=== PATIENT | male | born 1960 | race Caucasian/White ===

== ENCOUNTER → 2024-03-19 10:27 | Outpatient (BNVA) | payer OTHER, SELFPAY | PROVIDERS: Visit Provider Internal Medicine | DX: E11.9 Type 2 diabetes mellitus without complications (principal); E78.2 Mixed hyperlipidemia | CPT/HCPCS: 36415; 80053; 80061; 82044; 82607; 83036; 83721; 85025 ==

== ENCOUNTER → 2024-06-12 09:22 | Outpatient (BNVA) | payer MEDICARE, OTHER, SELFPAY | PROVIDERS: PCP Nurse Practitioner Family; Visit Provider Internal Medicine | DX: Z12.5 Encounter for screening for malignant neoplasm of prostate (principal); E11.9 Type 2 diabetes mellitus without complications; E78.2 Mixed hyperlipidemia | CPT/HCPCS: 80053; 80061; 82043; 83036; 83721; G0103 ==

== ENCOUNTER → 2024-06-19 07:58 | Outpatient (BNVA) | payer MEDICARE, OTHER, SELFPAY | PROVIDERS: PCP Nurse Practitioner Family; Visit Provider Internal Medicine | DX: G62.9 Polyneuropathy, unspecified (principal); Z82.49 Family history of ischemic heart disease and other diseases of the circulatory system; E78.5 Hyperlipidemia, unspecified | CPT/HCPCS: 99214 ==

== ENCOUNTER → 2024-08-01 09:30 | Outpatient (BNVA) | payer MEDICARE, OTHER, SELFPAY | PROVIDERS: PCP Nurse Practitioner Family; Visit Provider Internal Medicine | DX: E78.5 Hyperlipidemia, unspecified (principal) | CPT/HCPCS: 36415; 80061 ==

== ENCOUNTER → 2024-09-09 12:26 | Outpatient (BNVA) | payer MEDICARE, OTHER, SELFPAY | PROVIDERS: PCP Nurse Practitioner Family; Visit Provider Internal Medicine | DX: R07.9 Chest pain, unspecified (principal); R06.09 Other forms of dyspnea; I49.3 Ventricular premature depolarization; E78.5 Hyperlipidemia, unspecified; Z82.49 Family history of ischemic heart disease and other diseases of the circulatory system | CPT/HCPCS: 93005; 99204 ==

== ENCOUNTER → 2024-09-10 12:47 | Outpatient (BNVA) | payer MEDICARE, OTHER, SELFPAY | PROVIDERS: PCP Nurse Practitioner Family; Visit Provider Nurse Practitioner Family | DX: L57.8 Other skin changes due to chronic exposure to nonionizing radiation (principal); D22.5 Melanocytic nevi of trunk; L81.4 Other melanin hyperpigmentation; L21.8 Other seborrheic dermatitis; D48.5 Neoplasm of uncertain behavior of skin; R20.8 Other disturbances of skin sensation; L29.89 Other pruritus; R23.8 Other skin changes; L57.0 Actinic keratosis | CPT/HCPCS: 11102; 17000; 99204 ==

== ENCOUNTER 2024-10-02 06:47 | Outpatient (CLI) | payer MEDICARE, OTHER, SELFPAY ==
--- NOTE | 2024-10-02 | ECG_ITS ---
[facility] Test Date: 2024-10-02 Pat Name: Gilberto Harper Department: Room: Gender: Male Sternman: : 1960 Requested By: Filippo Dhaliwal Order Number: [id number] Lakhwinder MD: Filippo Dhaliwal M.D. Interpretive Statements EXERCISE MIBI : EXERCISE DATA: The patient was exercised by Nadir protocol. Baseline heart rate was 63 beats per minute. Baseline blood pressure was 132/88 millimeters of mercury. Maximal predicted heart rate was 155 beats per minute. Maximum heart rate achieved was 146 which was 94% of the maximum predicted heart rate. Maximum blood pressure was 188/85 millimeters of mercury. Total exercise time was 5 minutes and 30 seconds. Maximum METs achieved was 7.0. The reason for ending the test was maximal effort achieved. The patient complained of shortness of breath during the stress test, which then resolved at the end of the test. ELECTROCARDIOGRAM: BASELINE: Showed sinus rhythm, normal axis, no significant ST-T changes at the baseline noted. Frequent PVCs seen[] EXERCISE: At the peak exercise level, [] No significant ST-T changes suggestive of ischemia noted. [] RECOVERY: During the recovery period, heart rate dropped appropriately. No significant ST-T changes in the recovery suggestive of ischemia noted. Frequent PVCs [] CONCLUSION: 1. Exercise capacity is fair. 2. Heart rate response was appropriate 3. Blood pressure response was appropriate 4. Symptoms not suggestive of ischemia. 5. Electrocardiogram portion of the stress test was not suggestive of ischemia. 6. Nuclear scan will be documented separately. Electronically Signed On 10-06-2024 23:13:28 CDT by Filippo Dhaliwal M.D. [email or web address]
--- NOTE | 2024-10-02 06:15 | USCV_ITS ---
Gilberto Harper Age: 64 Gender: M : 1960 Exam Date: 10/02/2024 07:06 Ordering Phys: Filippo Dhaliwal M.D ([email or web address]) Technologist: Exam Location: [facility] – [place] Indication: cp sob BP: 1120 / 70 HR: 53 Rhythm: Sinus Technical Quality: Adequate MEASUREMENTS (Male / Female) Normal Values 2D ECHO LV Diastolic Diameter PLAX 4.2 cm 4.2 - 5.9 / 3.9 - 5.3 cm IVS Diastolic Thickness 1.5 cm 0.6 - 1.0 / 0.6 - 0.9 cm IVS Systolic Thickness 2.4 cm LVPW Diastolic Thickness 1.5 cm 0.6 - 1.0 / 0.6 - 0.9 cm LVPW Systolic Thickness 2.2 cm LVOT Diameter 2.5 cm LV Ejection Fraction 2D Teich 61.2 % LV Ejection Fraction MOD 4C 54.8 % LV Ejection Fraction MOD 2C 58.4 % LV Ejection Fraction 2C AL 62.6 % LA Diameter 4.2 cm RA Systolic Volume 4C AL 40.3 ml RA Systolic Volume 4C MOD 37.2 ml Aorta at Sinotubular Diameter 3.5 cm M-MODE LA Ao Ratio MM 1.2 AV Cusp Separation MM 2.2 cm DOPPLER AV Peak Velocity 120.0 cm/s LVOT Peak Velocity 80.0 cm/s AV Area Cont Eq vti 3.7 cm squared AV Area Cont Eq pk 3.3 cm squared MV Peak Velocity 70.0 cm/s MV Area PHT 3.7 cm squared Mitral E to A Ratio 1.0 TV Peak Velocity 242.5 cm/s TR Peak Velocity 252.0 cm/s TR Peak Gradient 25.4 mmHg TV Peak E Velocity 86.0 cm/s PV Peak Velocity 88.0 cm/s FINDINGS Left Ventricle Normal left ventricular size, systolic function and wall thickness, with no regional wall motion abnormalities. Normal left ventricular size and systolic function, EF 55-60% Right Ventricle Normal right ventricular size and systolic function. Right Atrium Normal right atrial size. Left Atrium Normal left atrial size. Mitral Valve Structurally normal mitral valve. Mild mitral valve regurgitation Aortic Valve Thickened aortic valve. No aortic valve stenosis. Tricuspid Valve Insufficient TR jet to calculate RVSP Pulmonic Valve Trace pulmonary valve regurgitation. Pericardium Normal Aorta Grossly normal size IVC Not well visualized CONCLUSIONS LV systolic function is normal with EF of 55-60% Mild mitral regurgitation Trace pulmonary valve regurgitation. Filippo Dhaliwal MD (Electronically Signed) Final Date: 05 October 2024 09:17 S
--- NOTE | 2024-10-02 07:23 | NMCV_ITS ---
NM abbie perf SPECT r/s* [id number] Gilberto Harper Age: 64 Gender: M : 1960 Exam Date: 10/02/2024 08:20 Ordering Phys: Filippo Dhaliwal M.D ([email or web address]) Technologist: GARFIELD Cho Exam Location: [facility] Indications: cp STRESS TEST Please see separate stress test report in [facility] for full findings IMAGE PROTOCOL Rest/Stress 1 Exercise Day Radiopharmaceutical Dose (mCi) Administration Site Administered by Rest: Tc-99m 10.7 IV GARFIELD Cho Sestamibi Stress:Tc-99m 32.5 IV GARFIELD Cho Sestamibi Rest: 02-Oct-2024 60 Discovery 630 Stress: 02-Oct-2024 30 Discovery 630 Radiopharmaceutical was injected at 87 % maximum heart rate. Images obtained in supine and prone position. SPECT RESULTS Technical Quality: Good Raw Data Analysis: Normal Image Corrections: No attenuation or motion correction applied Summed Stress Score: 1 Summed Rest Score: 0 Summed Difference Score: 1 PERFUSION FINDINGS There is a small sized area of partially reversible perfusion defect seen in the inferolateral wall. This is consistent with small sized area of prior infarct with minimal emmett-infarct ischemia in the left circumflex artery terrirtory. FUNCTIONAL RESULTS (calculated via Gated SPECT) Stress Image LV EF (%): 55 Stress EDV (mL):111 TID: 1.07 Stress ESV (mL):50 FUNCTIONAL FINDINGS: There is normal left ventricular systolic function. IMPRESSIONS 1. Abnormal myocardial perfusion imaging with small area of prior infarct with minimal emmett-infarct ischemia seen in left circumflex artery territory. 2. LV systolic function is normal. Filippo Dhaliwal MD (Electronically Signed) Final Date: 02 October 2024 11:04 S
[2024-10-02 07:26] VITALS: BMI 27.2
[2024-10-02 09:10] VITALS: BP 129/88; PULSE 86
== END 2024-10-02 06:48 | disposition home or self-care (01) ==
LOC: RAD 06:48 → CDL 07:26
PROVIDERS: PCP Nurse Practitioner Family; Visit Provider Internal Medicine
DX: R07.9 Chest pain, unspecified (principal); R06.02 Shortness of breath; R06.09 Other forms of dyspnea; I49.3 Ventricular premature depolarization; I34.0 Nonrheumatic mitral (valve) insufficiency; I37.1 Nonrheumatic pulmonary valve insufficiency; R94.39 Abnormal result of other cardiovascular function study; I49.8 Other specified cardiac arrhythmias
CPT/HCPCS: 36415; 78452; 93017; 93306; A9500

== ENCOUNTER → 2024-12-20 12:54 | Outpatient (BNVA) | payer MEDICARE, OTHER, SELFPAY | PROVIDERS: PCP Nurse Practitioner Family; Visit Provider Nurse Practitioner Family | DX: L57.8 Other skin changes due to chronic exposure to nonionizing radiation (principal); L81.4 Other melanin hyperpigmentation; D18.01 Hemangioma of skin and subcutaneous tissue; Z08 Encounter for follow-up examination after completed treatment for malignant neoplasm; Z85.828 Personal history of other malignant neoplasm of skin | CPT/HCPCS: 99213 ==

== ENCOUNTER → 2025-01-21 10:57 | Outpatient (BNVA) | payer MEDICARE, OTHER, SELFPAY | PROVIDERS: PCP Nurse Practitioner Family; Visit Provider Internal Medicine | DX: E78.5 Hyperlipidemia, unspecified (principal) | CPT/HCPCS: 80061 ==

== ENCOUNTER → 2025-01-29 07:49 | Outpatient (BNVA) | payer MEDICARE, OTHER, SELFPAY | PROVIDERS: PCP Nurse Practitioner Family; Visit Provider Nurse Practitioner Family | DX: E78.5 Hyperlipidemia, unspecified (principal); Z82.49 Family history of ischemic heart disease and other diseases of the circulatory system; I49.3 Ventricular premature depolarization; G62.9 Polyneuropathy, unspecified | CPT/HCPCS: 99214 ==

== ENCOUNTER → 2025-02-06 08:29 | Outpatient (BNVA) | payer MEDICARE, OTHER, SELFPAY | PROVIDERS: PCP Nurse Practitioner Family; Visit Provider Internal Medicine Endocrinology, Diabetes & Metabolism | DX: G62.9 Polyneuropathy, unspecified (principal); E78.5 Hyperlipidemia, unspecified; Z82.49 Family history of ischemic heart disease and other diseases of the circulatory system | CPT/HCPCS: 99214 ==